=== PATIENT | male | born 1960 | race Caucasian/White ===

== ENCOUNTER 2023-08-23 09:37 | Outpatient (CLI) | payer MEDICARE, SELFPAY | END 2023-08-23 09:38 | disposition home or self-care (01) | PROVIDERS: PCP Family Medicine; Visit Provider Family Medicine | DX: Z12.5 Encounter for screening for malignant neoplasm of prostate (principal); Z13.220 Encounter for screening for lipoid disorders; B19.20 Unspecified viral hepatitis C without hepatic coma | CPT/HCPCS: 80053; 80061; G0103 ==

== ENCOUNTER 2023-10-03 09:40 | Outpatient (RCR) | payer MEDICARE, SELFPAY | END 2024-01-21 17:00 | disposition home or self-care (01) | PROVIDERS: PCP Family Medicine; Visit Provider Nurse Practitioner Family | DX: M54.59 Other low back pain (principal); M53.3 Sacrococcygeal disorders, not elsewhere classified; M79.18 Myalgia, other site; R29.898 Other symptoms and signs involving the musculoskeletal system; Z51.89 Encounter for other specified aftercare | CPT/HCPCS: 97110; 97140; 97162 ==

== ENCOUNTER 2025-03-31 10:48 | Outpatient (CLI) | payer MEDICARE, SELFPAY | END 2025-03-31 10:49 | disposition home or self-care (01) | PROVIDERS: PCP Family Medicine; Visit Provider Family Medicine | DX: Z13.6 Encounter for screening for cardiovascular disorders (principal); Z12.5 Encounter for screening for malignant neoplasm of prostate; B18.2 Chronic viral hepatitis C | CPT/HCPCS: 80053; 80061; G0103 ==